=== PATIENT | male | born 1990 | race Asian ===

== ENCOUNTER 2016-12-21 22:25 | Emergency (ER) | payer OTHER ==
[~2016-12-21] VITALS: Ht 167.6 cm; Wt 54.4 kg
[2016-12-21] MEDS ORDERED: DAYQUIL (22:32)
[2016-12-21 23:15] LABS: HEMATOCRIT 42.6 % (42.0-52.0); HEMOGLOBIN 14.6 gm/dL (14.0-18.0); MCH 28.9 pg (26.0-34.0); MCHC 34.3 g/dL (28.0-37.0); MCV 84.2 fL (80.0-100.0); RBC 5.06 mil/uL (4.50-6.00); RDW 13.2 % (10.5-14.5); WBC 13.6 thou/uL (4.0-11.0)
[2016-12-21 23:17] LABS: MANUAL DIFF YES
[2016-12-21 23:22] LABS: CALCIUM 9.4 mg/dL (8.5-10.1); CREATININE 1.3 mg/dL (0.7-1.3); MAGNESIUM 2.1 mg/dL (1.8-2.4)
[2016-12-22 00:23] LABS: URINE BILIRUBIN NEGATIVE (Negative); URINE BLOOD TRACE (Negative); URINE GLUCOSE-RANDOM* NEGATIVE (Negative); URINE KETONES NEGATIVE (Negative); URINE LEUKOCYTES-REFLEX NEGATIVE (Negative); URINE PROTEIN (DIPSTICK) NEGATIVE (Negative); URINE SPECIFIC GRAVITY <= 1.005 (1.003-1.035); URINE UROBILINOGEN 0.2 E.U./dl (0.2-1.0)
[2016-12-22 00:24] LABS: ABSOLUTE NEUTROPHILS 12.1 thou/uL (1.4-8.2); PLATELET COUNT 98 thou/uL (150-400); TOTAL CELL COUNT 100
[2016-12-22 00:25] LABS: URINE COLOR COLORLESS
[2016-12-22] MEDS ORDERED: AMOXICILLIN 50500 M1 PO (00:35)
[2016-12-22 01:12] VITALS: BP 100/68
== END 2016-12-22 01:18 | disposition home or self-care (01) ==
LOC: ER 22:25
PROVIDERS: Emergency Medicine
DX: J02.9 Acute pharyngitis, unspecified (principal); R50.9 Fever, unspecified; F10.99 Alcohol use, unspecified with unspecified alcohol-induced disorder